=== PATIENT | female | born 2000 | race Caucasian/White ===

== ENCOUNTER 2021-04-16 16:53 | Emergency (ER) | payer OTHER ==
[2021-04-16 18:27] LABS: HEMOGLOBIN 14.7 gm/dl (12.3-15.3); RED BLOOD COUNT 4.83 M/UL (4.00-5.10); WHITE BLOOD COUNT 4.4 K/UL (4.5-11.0)
[2021-04-16 18:58] LABS: BUN/CREATININE RATIO 9 (0-10)
[2021-04-16] MEDS ORDERED: PROAIR HFA8.5 GM INH (21:45)
[2021-04-16] MEDS ORDERED: AZITHROMYCIN500 MG PO (21:45)
== END 2021-04-16 22:07 | disposition home or self-care (01) ==
LOC: ER1 16:53
PROVIDERS: Physician Assistant Medical
DX: U07.1 COVID-19 (principal); J12.82 Pneumonia due to coronavirus disease 2019; Z88.0 Allergy status to penicillin; F17.290 Nicotine dependence, other tobacco product, uncomplicated
CPT/HCPCS: 71045; 80053; 85025; 99285